=== PATIENT | male | born 1965 | race Hispanic/Latino ===

== ENCOUNTER → 2024-08-16 | Outpatient (CLI) | payer MEDICAID ==
[2024-08-16] MEDS: REGADENOSON 0.4 MG/5 ML PF SYG IVP ONE (10:04)
== END | disposition home or self-care (01) ==
LOC: SHCH 08:32
PROVIDERS: ATTEND Internal Medicine
DX: R94.31 Abnormal electrocardiogram [ECG] [EKG] (principal); R06.00 Dyspnea, unspecified
CPT/HCPCS: 78452; 93017; J2785; A9500 ×2

== ENCOUNTER → 2024-12-27 | Outpatient (CLI) | payer MEDICAID ==
[2024-12-27 22:28] VITALS: PULSE 68; RESP 12
[2024-12-27 23:02] VITALS: PULSE 62; RESP 14
[2024-12-27 23:29] VITALS: PULSE 57; RESP 14
[2024-12-28] VITALS (11 sets, daily range): PULSE 55–77; RESP 12–18
== END | disposition home or self-care (01) ==
LOC: SLP 20:23
PROVIDERS: ATTEND Internal Medicine
DX: G47.33 Obstructive sleep apnea (adult) (pediatric) (principal); R06.83 Snoring
CPT/HCPCS: 95810

== ENCOUNTER → 2024-12-30 | Outpatient (CLI) | payer MEDICAID ==
[2024-12-30 23:00] VITALS: PULSE 62; RESP 18
[2024-12-30 23:30] VITALS: PULSE 58; RESP 18
[2024-12-31] VITALS (11 sets, daily range): PULSE 54–60; RESP 12–26
== END | disposition home or self-care (01) ==
LOC: SLP 20:30
PROVIDERS: ATTEND Internal Medicine
DX: G47.33 Obstructive sleep apnea (adult) (pediatric) (principal)
CPT/HCPCS: 95811